=== PATIENT | male | born 1980 | race Caucasian/White ===

== ENCOUNTER 2025-05-15 19:39 | Emergency (ER) | payer SELFPAY ==
[2025-05-15 19:54] VITALS: BP 134/68; PULSE 81; RESP 16; TEMP 36.6; O2SAT 98
[2025-05-16 02:59] VITALS: BP 127/73; PULSE 71; RESP 14; TEMP 36.5; O2SAT 96
--- NOTE | 2025-05-16 03:10 | PC.NURSE ---
pt launched at this RN, pt then lowered himself to floor and started making odd movements. Pt uncooperative, disrupting pt in waiting area, RN unable to redirect. mirror painter made aware, and security made aware.
== END 2025-05-16 03:30 | disposition left against medical advice (07) ==
LOC: ANHED 05-16 05:11
DX: R10.9 Unspecified abdominal pain (principal)
CPT/HCPCS: 99199